=== PATIENT | male | born 1970 | race Caucasian/White ===

== ENCOUNTER 2021-02-18 07:39 | Emergency (ER) | payer OTHER, SELFPAY ==
[2021-02-18 07:47] VITALS: BP 167/92; PULSE 89; RESP 18; TEMP 36.7; O2SAT 99; BMI 32.8
--- NOTE | 2021-02-18 08:00 | ED_ITS ---
HPI - Extremity Injury (Upper) General Chief Complaint: Extremity Injury, Upper Stated Complaint: RIGHT ARM TWISTED Time Seen by Provider: 02/18/21 07:52 Source: patient and family Mode of arrival: Ambulatory Limitations: no limitations History of Present Illness HPI narrative: Patient complains of right elbow/forearm injury 12 hours ago last night. Was placing supports on his RV/trailer. Using a drill and it torqued on him. Causing supination direction on his forearm. Complains of medial forearm pain and elbow pain. Patient is right handed. No numbness tingling or weakness. Not painful to palpate area but painful with supination or attempts to extend his elbow. Keeps elbow in flexed position at 90? and close to his body. Related Data Previous Rx's Medication Instructions Recorded hydrocodone-acetaminophen 1 tab PO Q6H PRN #15 tab 02/18/21 ondansetron 4 mg PO Q8H PRN #10 tab 02/18/21 Allergies Allergy/AdvReac Type Severity Reaction Status Date / Time Iodinated Contrast Media Allergy Intermediate Verified 02/18/21 08:01 Review of Systems Review of Systems Narrative: GENERAL: Denies chills, fatigue, malaise, fever, sweats. HEENT: Denies sinus pain, ear pain, sore throat RESPIRATORY: Denies dyspnea, cough CARDIOVASCULAR: Denies chest pain, palpitations GASTROINTESTINAL: Denies nausea, vomiting, abdominal pain : Denies dysuria, frequency, hematuria MUSCULOSKELETAL: Complaint muscle or bony pain SKIN: Denies rash, skin lesions NEUROLOGIC: Denies weakness, numbness ROS Unobtainable: All systems reviewed & are unremarkable except as noted in HPI and below Patient History Social History Smoking Status: Never smoker Smoking Status: Never smoker alcohol intake frequency: 3 or more drinks per day Substance Use Type: does not use Exam Narrative Exam Narrative: GENERAL: in no distress, not toxic not dyspneic HEAD: Normocephalic. EYES: Pupils equal round EXTREMITIES: Examination right upper extremity. Shoulders to fingertips exposed. Grossly symmetric to the left upper extremity. No gross deformity of the biceps. Nontender on palpation of the biceps. Nontender to the proximal muscles of the forearm. However very limited range of motion due to pain. Increased pain with any attempt to extend the at the elbow or supinate. Strong trigonometry tutor in radial pulse with light touch intact to fingers and thumb. Nontender wrist. NEURO: AOx4. SKIN: Warm and dry PSYCH: Not anxious, is cooperative Initial Vital Signs Initial Vital Signs: Vital Signs Temperature 98.0 F 02/18/21 07:47 Pulse Rate 89 02/18/21 07:47 Respiratory Rate 18 02/18/21 07:47 Blood Pressure 167/92 H 02/18/21 07:47 Pulse Oximetry 99 02/18/21 07:47 Procedures Orthopedic Splinting/Casting Injury #1: Side: right Upper Extremity Injury Location: elbow Upper Extremity Immobilizer: sugar tong splint Post splinting neuro exam: intact Post splinting vascular exam: intact Placed by: Nursing Course Course Course Narrative: No new issues during course of stay. Orders Ordered: ED Orders 02/18/21 07:59 XR elbow RT 2V Stat 02/18/21 08:33 CT UE RT wo con Stat Discontinued Medications Hydrocodone Bitart/Acetaminophen (Hydrocodone/Acet 5/325 Tablet) 2 tab PO NOW ONE Stop: 02/18/21 08:00 Last Admin: 02/18/21 08:26 Dose: 1 tab Documented by: TATIANA Ondansetron HCl (Ondansetron 4 Mg Odt) 4 mg SL NOW ONE Stop: 02/18/21 08:00 Last Admin: 02/18/21 08:27 Dose: 4 mg Documented by: TATIANA Reevaluation(s) Reevaluation #1: Reviewed results with patient and . Likely muscle/tendon or ligamentous tear. Will need a referral to Orthopedics and MRI outpatient. Reevaluation #2: Patient is from out of town. I did review results with patient and . They agree with treatment plan and follow-up with splint and give referral to Orthopedics Time: 09:40 Vital Signs Vital signs: Vital Signs - 8 hr 02/18/21 07:47 02/18/21 10:10 Temperature 98.0 F Pulse Rate 89 81 Respiratory Rate 18 17 Blood Pressure 167/92 H 152/92 H Pulse Oximetry 99 100 MDM - Extremity Injury (Upper) Differential Diagnosis Differential diagnosis: Likely other (Muscle strain/tear/tendon injury/ligamentous injury/sprain) Imaging Data Extremity x-ray #1: Radiologist's Impression: [address] [id number] ReportSigned Patient: Andres Caicedo AMR#: [id number]: 1970Acct:[id number]/Sex: 50 / MDate of Service: 02/18/21Lo: EDAccession Number: [id number] Procedure: XR elbow RT 2V Ordering Provider: Yohannes Brink MD PROCEDURE: XR ELBOW RT 2V INDICATIONS: Pain/injury TECHNIQUE: 3 views of the elbow were acquired. COMPARISON: Outside Film, CR, XR ELBOW 3+ VIEWS RIGHT, 03/29/2020, 17:55. FINDINGS: Limited by nonstandard positioning. Bones: No fractures or dislocations. No suspicious bony lesions. Soft tissues: No elbow joint effusion. No suspicious soft tissue calcifications. IMPRESSION: Limited study, without a fracture or dislocation identified. If it would be helpful for clinical management decision making, please consider a dedicated elbow CT for further evaluation. Dictated by: Earnest Tim M.D. on 02/18/2021 at 7:22 Approved by: Earnest Tim M.D. on 02/18/2021 at 7:24 Extremity x-ray #2: Radiologist's Impression: [address] [id number] Scan ReportSigned Patient: Andres Caicedo AMR#: [id number]: 1970Acct:[id number]/Sex: 50 / MDate of Service: 02/18/21Loc: EDAccession Number: [id number] Procedure: CT UE RT wo con Ordering Provider: Yohannes Brink MD PROCEDURE: CT UE RT WO CON INDICATIONS: pain/injury/attention elbow TECHNIQUE: Noncontrast 1-1.5 mm axial sections were acquired through the elbow joint, with coronal and sagittal reformats. COMPARISON: [facility], CR, XR ELBOW RT 2V, 02/18/2021, 8:01. Outside Film, CR, XR ELBOW 3+ VIEWS RIGHT, 03/29/2020, 17:55. FINDINGS: Image quality: This examination is somewhat limited by quantum mottle artifact. Bones: Minimal irregularity can be seen of the radial head and neck. No acute fracture lines can be seen at this site or elsewhere. Underlying degenerative changes are seen. No suspicious lytic or blastic lesions are seen. The visualized ribs appear intact. Soft tissues: No significant surrounding soft tissue abnormality is seen. The v isualized lung demonstrates an unremarkable appearance. IMPRESSION: Minimal irregularity is seen of the radial head and neck, which is attributed to remote fracture. The If there is focal tenderness at this site, additional dedicated follow-up imaging would be recommended. Dictated by: Earnest Tim M.D. on 02/18/2021 at 8:13 Approved by: Earnest Tim M.D. on 02/18/2021 at 8:19 [facility] Narrative Medical decision making narrative: Appropriate for discharge home. Likely fracture of the radial head/neck. No dislocation seen on CT scan report. Will need outpatient MRI. Follow-up with orthopedics. Patient and agree with treatment plan. Discharge Plan Departure Patient Disposition: Home Clinical Impression: Closed fracture of right elbow Qualifiers: Encounter type: initial encounter Qualified Code(s): S42.401A - Unspecified fracture of lower end of right humerus, initial encounter for closed fracture Instructions: DI for Elbow Dislocation Activity Restrictions/Additional Instructions: No driving or operating machinery when taking pain medication. Call provided orthopedic office on Friday for office recheck within a week. Use splint and sling for comfort. Return if worse or if any questions or concerns. Prescriptions: New hydrocodone-acetaminophen 5-325 mg tablet 1 tab PO Q6H PRN (Reason: pain) Qty: 15 RF: 0 ondansetron 4 mg tablet,disintegrating 4 mg PO Q8H PRN (Reason: nausea and vomiting) Qty: 10 RF: 0 Referrals: Wanda Kerns MD [Physician] - Cameron Gabriel DO [Primary Care Provider] -
[2021-02-18] MEDS: HYDROCODONE/ACET 5/325 TABLET 2 TAB PO (08:26)
[2021-02-18] MEDS: ONDANSETRON 4 MG ODT SL (08:27)
--- NOTE | 2021-02-18 08:33 | DI.CT.S_ITS ---
PROCEDURE: CT UE RT WO CON INDICATIONS: pain/injury/attention elbow TECHNIQUE: Noncontrast 1-1.5 mm axial sections were acquired through the elbow joint, with coronal and sagittal reformats. COMPARISON: [facility], CR, XR ELBOW RT 2V, 02/18/2021, 8:01. Outside Film, CR, XR ELBOW 3+ VIEWS RIGHT, 03/29/2020, 17:55. FINDINGS: Image quality: This examination is somewhat limited by quantum mottle artifact. Bones: Minimal irregularity can be seen of the radial head and neck. No acute fracture lines can be seen at this site or elsewhere. Underlying degenerative changes are seen. No suspicious lytic or blastic lesions are seen. The visualized ribs appear intact. Soft tissues: No significant surrounding soft tissue abnormality is seen. The visualized lung demonstrates an unremarkable appearance. IMPRESSION: Minimal irregularity is seen of the radial head and neck, which is attributed to remote fracture. The If there is focal tenderness at this site, additional dedicated follow-up imaging would be recommended. Dictated by: Earnest Tim M.D. on 02/18/2021 at 8:13 Approved by: Earnest Tim M.D. on 02/18/2021 at 8:19
[2021-02-18 10:10] VITALS: BP 152/92; PULSE 81; RESP 17; O2SAT 100
== END 2021-02-18 10:10 | disposition home or self-care (01) ==
PROVIDERS: Emergency Provider Emergency Medicine; PCP Family Medicine
DX: S42.401A Unspecified fracture of lower end of right humerus, initial encounter for closed fracture (principal); X58.XXXA Exposure to other specified factors, initial encounter
CPT/HCPCS: 29125; 73070; 73200; 99284

== ENCOUNTER → 2021-09-13 07:25 | Outpatient (CLI) | payer OTHER, SELFPAY ==
[2021-09-13 07:54] LABS: COVID19 -Nasal RAPID POSITIVE (Negative)
== END ==
PROVIDERS: PCP Family Medicine; Referring Provider Physician Assistant; Visit Provider Physician Assistant
DX: Z20.822 Contact with and (suspected) exposure to COVID-19 (principal)
CPT/HCPCS: 87635

== ENCOUNTER 2022-09-15 07:02 | Emergency (ER) | payer OTHER, SELFPAY ==
[2022-09-15 07:05] VITALS: BP 194/95; PULSE 83; RESP 18; TEMP 36.7; O2SAT 99; BMI 34.4
--- NOTE | 2022-09-15 07:11 | ED.GENADULT ---
HPI - General Adult General Chief complaint: Dental/Oral Stated complaint: Lt. side of neck swollen Time Seen by Provider: 09/15/22 07:05 History of Present Illness HPI narrative: 52-year-old male nonsmoker with noncontributory medical history presents with family in the chief complaint of some pain and minimal swelling to his left anterior neck. He states it has been present for a day or 2. He denies any trouble controlling secretions, swallowing or breathing. He is had no fever or chills. He denies any chest pain, shortness of breath or cough. He denies any swelling of tongue, lip, throat or face. He denies any new medications or foods. Related Data Home Medications Medication Instructions Recorded Confirmed omeprazole magnesium [Acid Panel Flow Machine Operator PO 03/03/22 03/03/22 (omeprazole)] Allergies Allergy/AdvReac Type Severity Reaction Status Date / Time Iodinated Contrast Media Allergy Intermediate Verified 03/03/22 09:39 Review of Systems Review of Systems Narrative: GENERAL: Denies chills, fatigue, malaise, fever, sweats. HEENT: See HPI RESPIRATORY: Denies dyspnea, cough, wheezing, hemoptysis, sputum. CARDIOVASCULAR: Denies chest pain, palpitations, orthopnea, edema, GASTROINTESTINAL: Denies nausea, vomiting, abdominal pain, diarrhea, constipation, melena. : Denies dysuria, frequency, incontinence, hematuria, urinary retention. MUSCULOSKELETAL: denies weakness, joint pain, or bony pain SKIN: Denies rash, skin lesions, or other NEUROLOGIC: Denies weakness, headache, numbness, change in speech, confusion, seizures, incoordination. PSYCHIATRIC: No concerning psychosocial issues. 12 point review of systems is negative except for those stated above Patient History Social History Smoking Status: Never smoker Smoking Status: Never smoker alcohol intake frequency: 3 or more drinks per day Substance Use Type: does not use Exam Narrative Exam Narrative: GENERAL: [52] year old patient appears stated age. Well-developed patient, in mild distress. HEAD: Atraumatic. Normocephalic. EYES: Pupils equal round and reactive. Extraocular motions intact. ENT: No face, tongue, lip swelling Nose without bleeding, purulent drainage. Throat without erythema, tonsillar hypertrophy or exudate. Airway patent. NECK: Trachea midline. Small, freely mobile, minimally tender ?lump? under left side mandible, no fluctuance or induration, no overlying erythema. CARDIOVASCULAR: Regular rate and rhythm without murmurs, gallops, or rubs. RESPIRATORY: Clear to auscultation. Breath sounds equal bilaterally. No wheezes, rales, or rhonchi. GASTROINTESTINAL: Abdomen soft, non-tender, nondistended. EXTREMITIES: No edema or joint tenderness. BACK: Nontender without deformity or crepitance. No flank tenderness. NEURO: AOx3. Cranial nerves 2-12 grossly intact SKIN: No rash or erythema of visible areas Initial Vital Signs Initial Vital Signs: Vital Signs Temperature 98.1 F 09/15/22 07:05 Pulse Rate 83 09/15/22 07:05 Respiratory Rate 18 09/15/22 07:05 Blood Pressure 194/95 H 09/15/22 07:05 Pulse Oximetry 99 09/15/22 07:05 Oxygen Delivery Method 09/15/22 07:05 Medical Decision Making Lab Data Labs: Point of Care Testing Rapid Strep A Negative Point of care testing: Point of Care Testing Rapid Strep A Negative MDM Narrative Medical decision making narrative: 52-year-old nonsmoker with noncontributory medical history presents with left side jaw swelling [] Multiple etiologies for patient's symptoms considered including, but not limited to: Dental abscess, retropharyngeal abscess, sialadenitis versus other] Prior Charts reviewed: Including prior ED visit from January of 2021 Labs reviewed and interpreted by myself: Strep negative We had extensive discussion about his very reassuring history and physical exam in the absence of systemic complaints or abnormal vital signs. Furthermore, he has a known allergy to IV contrast and with low suspicion of a significant diagnosis at this time given his lack of difficulty swallowing, controlling secretions, trouble breathing or systemic findings we will hold off. We discussed return precautions at length, he was encouraged to employed the use of sialagogues Findings and discharge diagnosis discussed with patient/family followed by verbalization of understanding Return precautions discussed with patient/family whom verbalize understanding of diagnosis and plan Discharge Plan Departure Patient Disposition: Home Clinical Impression: Sialadenitis Instructions: High Blood Pressure Activity Restrictions/Additional Instructions: *You have been diagnosed with [swollen submandibular saliva gland, hypertension] *What to do: *Please continue to take your regular medications as directed. *more often than not this situation is improved by eating hard candies or chewing gum, both of which will increase saliva production and can help resolve the problem *Please follow up with your primary care provider in 2-3 days, call for an appointment. Let them know you were seen in the Emergency Department and that we ask that you be seen in follow up. We will electronically transmit a record of today's note if your PCP is in our system. Additionally, as we discussed, I've given you contact info for Dr. Duran who is the local ENT doctor that would frequently follow up on this type of diagnosis. *Return to Emergency Department if you should have any new, worsening or concerning symptoms, such as [fever greater than 101 F, shaking chills, worsening pain, persistent vomiting or other bothersome symptoms] Prescriptions: No Action omeprazole magnesium [Acid Panel Flow Machine Operator (omeprazole)] PO Referrals: Ramona Payne PA-C [Primary Care Provider] - Daniel Duran MD [Physician] - Visit Report Forms: Patient Portal/API
== END 2022-09-15 07:56 | disposition home or self-care (01) ==
PROVIDERS: Emergency Provider Emergency Medicine; PCP Physician Assistant
DX: K11.20 Sialoadenitis, unspecified (principal)
CPT/HCPCS: 87070; 87880; 99282

== ENCOUNTER → 2022-11-22 07:50 | Outpatient (CLI) | payer OTHER, SELFPAY ==
--- NOTE | 2022-11-22 | DI.ECHO.S_ITS ---
[facility] +---------+ : : [address] [place] : : : : [id number] : : : : Phone: [phone] Echocardiogram Report + + :Name: RIAZ WALL Study Date: 11/22/2022 Height: 67 in : :[facility] ReadingLocation: Weight: 220 lb : : Gender: Male BSA: 2.1 m2 : :: 1970 Age: 52 yrs BP: 161/97 mmHg: :Reason For Study: Holosystolic murmur : :Ordering Physician: OSWALDO, : :ROSA ISELA Carcamo Performed By: Jeniffer Finch : :Referring: ROSA ISELA CHACON : + + Interpretation Summary The ejection fraction is estimated to be 60-65%. Diastolic parameters suggest probable normal left ventricular diastolic function and normal filling pressures. The right ventricle is normal in size and function. There is mild aortic stenosis. There is mild aortic regurgitation. The IVC is of normal diameter and collapses greater than 50% with a sniff. This suggests a low right atrial pressure of 3 mm Hg. Hypertensive on exam 161/97mmHg. Procedure: A two-dimensional transthoracic echocardiogram with color flow and Doppler was performed. The study quality was technically good. Hypertensive on exam 161/97mmHg. The patient was in sinus rhythm with heart rates between 65-72 bpm during the exam. Left Ventricle: The left ventricle is normal in size and wall thickness. The ejection fraction is estimated to be 60-65%. Diastolic parameters suggest probable normal left ventricular diastolic function and normal filling pressures. Right Ventricle: The right ventricle is normal in size and function. Atria: The left atrial size is normal. Right atrial size is normal. There is no Doppler evidence for an interatrial shunt. Mitral Valve: The mitral valve is normal in structure and function. There is trace mitral regurgitation. Aortic Valve: The aortic valve is trileaflet. The aortic valve is mildly calcified. There is mild aortic stenosis. The aortic valve mean gradient is 19.7 mmHg. There is mild aortic regurgitation. Tricuspid Valve: The tricuspid valve is normal in structure and function. There is a trace or physiologic amount of tricuspid regurgitation. Pulmonic Valve: The pulmonic valve leaflets are thin and pliable; valve motion is normal. There is a trace or physiologic amount of pulmonic regurgitation. Great Vessels: The aortic root is normal size. The ascending aorta is normal in size. The pulmonary artery is normal size. The IVC is of normal diameter and collapses greater than 50% with a sniff. This suggests a low right atrial pressure of 3 mm Hg. Pericardium/ Pleura There is no pericardial effusion. There is no pleural effusion. MMode/2D Measurements & Calculations LVIDd: 4.2 cm LVOT diam: 2.1 cm LVIDs: 2.9 cm Ao root diam: 3.1 cm FS: 30.4 % asc Aorta Diam: 2.9 cm EPSS: 0.23 cm IVSd: 1.0 cm LVPWd: 0.99 cm LV loya. diameter/BSA (cm/m^2): 2.0 LV sys. diameter/BSA (cm/m^2): 1.4 LA A2 area: 17.0 cm2 RA long axis: 4.3 cm LA A4 area: 19.5 cm2 RA area: 14.9 cm2 LA length (vol): 5.2 cm RA vol: 43.9 ml LA vol: 54.0 ml RA : 20.8 ml/m2 LA vol index: 25.6 ml/m2 IVC diam: 1.7 cm RVD1 (basal): 3.7 cm TAPSE: 2.0 cm Doppler Measurements & Calculations Ao V2 max: 298.3 cm/sec LVOT Max Dusty: 125.6 cm/sec Ao V2 mean: 212.1 cm/sec LV V1 max P.3 mmHg Ao max P.6 mmHg LV V1 VTI: 27.3 cm Ao mean P.7 mmHg EMILY(I,D): 1.6 cm2 Ao V2 VTI: 61.1 cm EMILY(V,D): 1.5 cm2 sev ratio: 0.45 EMILY indexed to BSA (cm^2/m^2): 0.75 MV E max dusty: 107.0 cm/sec TR max dusty: 226.8 cm/sec MV A max dusty: 78.8 cm/sec TR max P.6 mmHg MV E/A: 1.4 PA V2 max: 130.4 cm/sec Med Peak E' Dusty: 8.5 cm/sec PA V2 mean: 100.6 cm/sec E/E' med: 12.6 PA mean P.3 mmHg Lat Peak E' Dusty: 11.5 cm/sec E/E' lat: 9.3 E/e' average: 10.9 MV dec time: 0.26 sec MVA(VTI): 2.7 cm2 MV V2 mean: 70.3 cm/sec SV(LVOT): 96.7 ml MV mean P.3 mmHg MV V2 VTI: 35.3 cm Reading Physician:ROSINA
--- NOTE | 2022-11-22 | DI.CT.S_ITS ---
PROCEDURE: CT HEAD/BRAIN WO CON INDICATIONS: Cardiac murmur, Dizziness and giddiness TECHNIQUE: Noncontrast 4.5 mm thick angled axial sections acquired from the foramen magnum to the vertex, with coronal and sagittal reformats. For radiation dose reduction, the following was used: automated exposure control, adjustment of mA and/or kV according to patient size. COMPARISON: None. FINDINGS: Image quality: Excellent. CSF spaces: Basal cisterns are patent. No extra-axial fluid collections. Ventricles are normal in size and shape. Brain: No midline shift. No intracranial masses or hemorrhage. Vásquez-white matter interface is normal. Skull and face: Calvarium and visualized facial bones are intact, without suspicious lesions. Sinuses: Visualized sinuses and mastoids are clear. IMPRESSION: CT head without acute intracranial abnormalities. No mass or mass effect visualized. If there is persistent clinical concern, consider further evaluation with MRI. Dictated by: Ronan Madison M.D. on 11/22/2022 at 8:24 Approved by: Ronan Madison M.D. on 11/22/2022 at 8:27
== END ==
PROVIDERS: PCP Physician Assistant; Referring Provider Physician Assistant; Visit Provider Physician Assistant
DX: I35.0 Nonrheumatic aortic (valve) stenosis (principal); R42 Dizziness and giddiness; R01.1 Cardiac murmur, unspecified
CPT/HCPCS: 70450; 93306

== ENCOUNTER → 2023-12-03 18:15 | Outpatient (CLI) | payer OTHER, SELFPAY ==
[2023-12-03 20:55] LABS: COVID-19 CEPHEID 4-PLEX PCR Negative (Negative); Influenza A - CEPHEID Flu A NEGATIVE (NEGATIVE); Influenza B - CEPHEID Flu B NEGATIVE (NEGATIVE); Respiratory Syncytial Virus Negative (Negative)
== END ==
PROVIDERS: PCP Physician Assistant; Visit Provider Nurse Practitioner Family
DX: R05.1 Acute cough (principal)
CPT/HCPCS: 0241U

== ENCOUNTER → 2023-12-03 18:39 | Outpatient (CLI) | payer OTHER, SELFPAY ==
--- NOTE | 2023-12-03 18:43 | DI.RAD.S_ITS ---
PROCEDURE: XR CHEST 2V INDICATIONS: Cough TECHNIQUE: 2 views of the chest were acquired. COMPARISON: None. FINDINGS: Surgical changes and devices: None. Lungs and pleura: Lungs are clear. No pleural effusions or pneumothorax. Mediastinum: Mediastinal contours are normal. Heart size is normal. Bones and chest wall: No suspicious bony abnormalities. Soft tissues appear unremarkable. IMPRESSION: No acute cardiopulmonary abnormality is seen. Dictated by: Sarwat Mcduffie M.D. on 12/04/2023 at 8:49 Approved by: Sarwat Mcduffie M.D. on 12/04/2023 at 8:50
== END ==
LOC: RAD 18:41
PROVIDERS: PCP Physician Assistant; Referring Provider Nurse Practitioner Family; Visit Provider Nurse Practitioner Family
DX: R05.1 Acute cough (principal)
CPT/HCPCS: 0241U; 71046